=== PATIENT | male | born 1990 | race African-American/Black ===

== ENCOUNTER 2023-09-03 20:22 | Inpatient (IN) | payer MEDICAID, OTHER ==
--- NOTE | 2023-09-03 21:28 | ED ---
Psych HPI - General Chief Complaint: Psychiatric Symptoms Stated Complaint: Petition Time Seen by Provider: 09/03/23 20:47 Source: patient, police, RN notes reviewed Mode of arrival: ambulatory - History of Present Illness Initial Comments: 33-year-old male who states he does not feel well about himself feels depressed he does admit to drinking alcohol today. He did cut his right forearm with a knife earlier today he states his tetanus shots are up-to-date. He was brought in by police under petition for suicidal ideation the apparently stated that he wanted to pretend like he had a gun so he would be shot by the police. MD Complaint: suicidal ideation, feels depressed - Related Data Allergies Allergy/AdvReac Type Severity Reaction Status Date / Time No Known Allergies Allergy Verified 09/03/23 20:35 Review of Systems ROS Statement: Those systems with pertinent positive or pertinent negative responses have been documented in the HPI. ROS Other: All systems not noted in ROS Statement are negative. Past Medical History Past Medical History: No Reported History Past Surgical History: No Surgical Hx Reported Smoking Status: Current every day smoker, Heavy tobacco smoker Past Alcohol Use History: Occasional Past Drug Use History: None Reported General Exam - General Exam Comments Initial Comments: This is a well-developed well-nourished awake alert oriented x 4 male. He does have the smell of alcohol conjoiners on his breath Limitations: no limitations General appearance: alert, in no apparent distress Head exam: Present: atraumatic, normocephalic, normal inspection Eye exam: Present: normal appearance, PERRL, EOMI. Absent: scleral icterus, conjunctival injection, periorbital swelling ENT exam: Present: normal exam, mucous membranes moist Neck exam: Present: normal inspection. Absent: tenderness, meningismus, lymphadenopathy Respiratory exam: Present: normal lung sounds bilaterally. Absent: respiratory distress, wheezes, rales, rhonchi, stridor Cardiovascular Exam: Present: regular rate, normal rhythm, normal heart sounds. Absent: systolic murmur, diastolic murmur, rubs, gallop, clicks GI/Abdominal exam: Present: soft, normal bowel sounds. Absent: distended, tenderness, guarding, rebound, rigid Extremities exam: Present: full ROM, normal capillary refill, other (Facial abrasion seen to the volar aspect of the right forearm no active bleeding no foreign body seen no repair indicated. No neurovascular deficits distally.). Absent: tenderness, pedal edema, joint swelling, calf tenderness Back exam: Present: normal inspection Neurological exam: Present: alert, oriented X3, CN II-XII intact Psychiatric exam: Present: depressed, flat affect, suicidal ideation Skin exam: Present: warm, dry, intact, normal color. Absent: rash Course Vital Signs 09/03/23 20:24 Temperature 98.6 F Pulse Rate 101 H Respiratory 22 Rate Blood Pressure 153/85 O2 Sat by Pulse 99 Oximetry Medical Decision Making - Medical Decision Making Patient was evaluated by the surgical service and will be admitted for inpatient evaluation and treatment of depression and suicidal ideation. He is a voluntary signed in. Was pt. sent in by a medical professional or institution (, NEHEMIAH, LASERIST, urgent care, hospital, or long-term...) When possible be specific @ -No Did you speak to anyone other than the patient for history (EMS, parent, family, police, friend...)? What history was obtained from this source @ -No Did you review nursing and triage notes (agree or disagree)? Why? @ -I reviewed and agree with nursing and triage notes Were old charts reviewed (outside hosp., previous admission, EMS record, old EKG, old radiological studies, urgent care reports/EKG's, long-term records)? Report findings @ -No old charts were reviewed Differential Diagnosis (chest pain, altered mental status, abdominal pain women, abdominal pain men, vaginal bleeding, weakness, fever, dyspnea, syncope, headache, dizziness, GI bleed, back pain, seizure, CVA, palpatations, mental health, musculoskeletal)? @ -Acute depression, suicidal ideation, alcohol ingestion EKG interpreted by me (3pts min.). @ -Not indicated X-rays interpreted by me (1pt min.). @ -None done CT interpreted by me (1pt min.). @ -None done U/S interpreted by me (1pt. min.). @ -None done What testing was considered but not performed or refused? (CT, X-rays, U/S, la bs)? Why? @ -None What meds were considered but not given or refused? Why? @ -None Did you discuss the management of the patient with other professionals (professionals i.e. , NEHEMIAH, LASERIST, lab, RT, psych nurse, psychotherapist social worker, lathing supervisor, teacher, surface to air weapons officer, wrapper caser)? Give summary @ -EPS service Was smoking cessation discussed for >3mins.? @ -No Was critical care preformed (if so, how long)? @ -No Were there social determinants of health that impacted care today? How? (Homelessness, low income, unemployed, alcoholism, drug addiction, transportation, low edu. Level, literacy, decrease access to med. care, chcf, rehab)? @ -No Was there de-escalation of care discussed even if they declined (Discuss DNR or withdrawal of care, Hospice)? DNR status @ -No What co-morbidities impacted this encounter? (DM, HTN, Smoking, COPD, CAD, Cancer, CVA, ARF, Chemo, Hep., AIDS, mental health diagnosis, sleep apnea, morbid obesity)? @ -None Was patient admitted / discharged? Hospital course, mention meds given and route, prescriptions, significant lab abnormalities, going to OR and other pertinent info. @ -Hospital course patient was admitted to the EPS service for inpatient evaluation and treatment for major depression, suicidal ideation Undiagnosed new problem with uncertain prognosis? @ -No Drug Therapy requiring intensive monitoring for toxicity (Heparin, Nitro, Insulin, Cardizem)? @ -No Were any procedures done? @ -No Diagnosis/symptom? @ -Major depression, suicidal ideation, alcohol ingestion Acute, or Chronic, or Acute on Chronic? @ -Acute Uncomplicated (without systemic symptoms) or Complicated (systemic symptoms)? @ -Default Side effects of treatment? @ -No Exacerbation, Progression, or Severe Exacerbation? @ -No Poses a threat to life or bodily function? How? (Chest pain, [place], [place], pneumonia, PE, COPD, DKA, ARF, appy, cholecystitis, CVA, Diverticulitis, Homicidal, Suicidal, threat to staff... and all critical care pts) @ -Potential Disposition Clinical Impression: Depression, Suicidal ideation, Alcohol ingestion Disposition: TRANSFER TO PSYCH HOSP/UNIT Condition: Stable Referrals: None,Stated [Primary Care Provider] - 1-2 days Decision Date: 09/03/23 Decision Time: 22:39
[2023-09-04] MEDS ORDERED: IBUPROFEN 600 MG TAB PO PRN (00:55)
[2023-09-04] MEDS ORDERED: MAGNESIUM HYDROXIDE 2,400 MG/30 ML CUP PO PRN (00:55)
[2023-09-04] MEDS ORDERED: haloperidoL 5 MG TAB PO PRN (00:55)
[2023-09-04] MEDS ORDERED: ACETAMINOPHEN TAB 325 MG TAB PO PRN (00:55)
[2023-09-04] MEDS ORDERED: LORazepam 1 MG TAB PO PRN (00:55)
[2023-09-04] MEDS ORDERED: HALOPERIDOL LACTATE 5 MG/ML 1 ML VIAL IM PRN (01:03)
[2023-09-04] MEDS ORDERED: LORazepam 2 MG/ML INJ IM PRN (01:03)
[2023-09-04 08:52] LABS: Basophils % (A) 0 %; Eosinophils # (A) 0.1 k/uL (0-0.7); Eosinophils % (A) 2 %; HCT 44.2 % (39.0-53.0); HGB 14.2 gm/dL (13.0-17.5); Lymphocytes # (A) 2.4 k/uL (1.0-4.8); Lymphocytes % (A) 38 %; MCH 31.9 pg (25.0-35.0); MCHC 32.3 g/dL (31.0-37.0); MCV 98.9 fL (80.0-100.0); Mean Platelet Volume 7.5; Monocytes # (A) 0.4 k/uL (0-1.0); Monocytes % (A) 6 %; Neutrophils # (A) 3.4 k/uL (1.3-7.7); Neutrophils % (A) 53 %; Platelet Count 283 k/uL (150-450); RBC 4.47 m/uL (4.30-5.90); RDW 13.9 % (11.5-15.5); WBC 6.4 k/uL (3.8-10.6)
[2023-09-04 09:08] LABS: ALT 29 U/L (4-49); AST 35 U/L (17-59); African American GFR (CKD) >90 (>60 ml/min/1.73 sqM); Albumin 3.7 g/dL (3.5-5.0); Alkaline Phosphatase 67 U/L (38-126); Anion Gap 5 mmol/L; Blood Urea Nitrogen 10 mg/dL (9-20); Calcium 8.9 mg/dL (8.4-10.2); Carbon Dioxide 27 mmol/L (22-30); Chloride 108 mmol/L (98-107); Glucose 93 mg/dL (74-99); Non-African American GFR(CKD) >90 (>60 ml/min/1.73 sqM); Sodium 140 mmol/L (137-145); Total Bilirubin 0.5 mg/dL (0.2-1.3); Total Protein 6.6 g/dL (6.3-8.2)
[2023-09-04] MEDS: NICOTINE 14MG/24HR PATCH TRANSDERM SCH (09:21)
[2023-09-04] MEDS ORDERED: hydrOXYzine pamoate 25 MG CAP PO PRN (13:50)
--- NOTE | 2023-09-04 13:58 | P.HP ---
Psychiatric H&P - . H&P Date: 09/04/23 History & Physical: Allergies Allergy/AdvReac Type Severity Reaction Status Date / Time No Known Allergies Allergy Verified 09/03/23 23:13 Vital Signs Temp 97.0 F L 09/04/23 01:24 Pulse 76 09/04/23 01:24 Resp 18 09/04/23 01:24 BP 137/72 09/04/23 01:24 Pulse Ox 99 09/04/23 01:24 FiO2 Intake & Output 09/03/23 09/04/23 09/04/23 18:59 06:59 18:59 Weight 107.7 kg Laboratory Last Values SARS-CoV-2 (PCR) Not Detected (Not Detectd) 09/03/23 23:36 09/04/23 08:49 IDENTIFYING DATA: Patient is a 33 year old male, who lives with his significant other in a town house. He has 8 children, with one on the way. Works visual display associate at [employer] HPI: Patient presented to the hospital on 09/02. He is brought in petition by the police. As per EPS note, "Petition states, "He has cut his wrist with a knife. He told officers that he was going to say he had a gun and do suicide by nuclear spectroscopist. His girlfriend watched him cut his forearm with a knife. He told her he was going to kill himself and put that on her and the kids". Upon assessment pt had a blanket covering his head. Pt was cooperative with RN and admits to making those statements. He denies being actively suicidal but did have a plan to cut self or dealth by nuclear spectroscopist. Pt seems to minimize the situation and statements made and he wants to return home. He states that him and his girlfriend got into an argument because he thought that she was cheating on him. She told him that she didn't want to be with him anymore and he starting to cut himself in front of her. "I wanted to get her attention, to make her care". Upon todays assessment, he admitted to cutting his arm with a knife, because he was arguing with his girl, and he wanted to get attention from her. Patient states that the girlfriend called the police afterwards and the police brought him to the hospital. Patient denies any current stressors. States he was only depressed yesterday. Was minimizing his depression and anxiety. Denies any problems today. Patient is minimizing his situation, speaking quietly, and seemingly sad during the interview. Patient denies any suicidal or homicidal ideations intent or plan. At this time patient denies any auditory or visual hallucinations. Patient denies any flight of ideas racing thoughts and increased in goal directed behavior. Patient denies drugs, admits to occasion ally drinking alcohol. Current every day smoker. PAST PSYCHIATRIC HISTORY: denies PMH:As per ER note ALLERGIES: as per EMR CHEMICAL DEPENDENCY HISTORY: as per HPI FAMILY PSYCHIATRIC/SUBSTANCE USE HISTORY: denies SOCIAL HISTORY: Patient was born and raised in [place], [place], moved to [place] when he was 9. Has gone between [place] and [place] growing up. Currently lives in [place], with his significant other. Patient has 8 children, and expecting another. High school graduate, some college. Reports incarceration in May for child support. MENTAL STATUS EXAM: General Appearance: Patient appears to be stated age is alert, directable, and attempts to cooperate. Patient appears to have adequate hygiene and grooming. Dressed in street clothes, has short hair and a romeo. Behavior: Patient is seated without any agitated behavior. Minimizing Speech: Patient's speech is fluent and nonpressured. Monotone, mumbling at times Mood/Affect: Patient reports their mood is all right, affect is congruent and constricted. Suicidality/Homicidality: Patient denies having any homicidal ideation intent or plan. Denies any suicidal ideations intent or plan Perceptions: Patient denies any visual hallucinations and denies any auditory hallucinations Though content/process: There is no evidence of any delusional thought content and thought process is linear and goal-directed. [place] Memory and concentration: AOX3, grossly intact for the purposes of this session. Can spell "WORLD" backward Judgment and insight: poor STRENGTHS/WEAKNESSES: strength is that patient is resilient. Weakness is that patient has poor judgment and is impulsive INTELLECT: average IMPRESSIONS: major depressive disorder without psychotic features adjustment disorder, with emotional conduct nicotine dependance alcohol use disorder PLAN: -Patient is admitted under voluntary status to MHU for stabilization of psychiatric symptoms and safety. Patient has signed adult voluntary form and medication consent and is placed in patient's chart. -Medications : Will start patient on Zoloft 50mg daily for mood/anxiety, Vistaril as needed for anxiety. Consider adding Remeron versus trazodone if patient requires this for sleep over the weekend. -Ativan and Haldol PRN for agitation/aggression -Patient was informed of the risks, benefits and side effects of the medication and patient verbally consented to taking the medications. -Internal Medicine consult to perform medical evaluation and physical. -NRT - nicotine patch -SW on board for discharge planning. Encourage patient to participate in groups to work on coping skills. Likely discharge early next week if patient is improving. 09/04/23 13:56
[2023-09-04] MEDS: SERTRALINE 50 MG TAB PO SCH (14:41)
[2023-09-04 15:41] LABS: Chol/HDL Ratio 2.99 Ratio; LDL Cholesterol,Calculated 118.9 mg/dL (0.0-131.0); VLDL Calculation 11.62 mg/dL (5.00-40.00)
--- NOTE | 2023-09-05 00:31 | P.CONS ---
History of Present Illness - Reason for Consult Consult date: 09/05/23 - History of Present Illness The patient is a 33-year-old male with no known PMH who presented to the emergency room after self-harm and suicidal ideation. The patient was admitted to the mental health unit where he was seen and evaluated. The patient reports that he had gotten into an argument with his girlfriend and in an attempt to get attention, he cut himself superficially on his right forearm. He reports drinki ng 2 pints of hard liquor per week and smoking a pack of cigarettes every week. Denies any illicit substance use. Also denied any physical complaints. Denied experiencing chest discomfort, shortness of breath, fever, chills, cough, nausea, vomiting, abdominal pain, diarrhea. Review of systems: Pertinent positives and negatives as discussed in HPI, a complete review of systems was performed and all other systems are negative. Physical examination: General: non toxic, no distress, appears at stated age, normal weight Derm: Superficial right forearm lacerations well-healing, no unusual rashe s/lesions, no unusual ecchymoses, warm, dry Head: atraumatic, normocephalic, symmetric Eyes: EOMI, no lid lag, anicteric sclera ENT: Nose and ears atraumatic, no thrush, no pharyngeal erythema Neck: trachea midline, supple Mouth: no lip lesion, mucus membranes moist Cardiovascular: S1S2 reg, no murmur, no edema Lungs: CTA bilateral, no rhonchi, no rales , no accessory muscle use Abdominal: soft, nontender to palpation, no guarding Ext: no gross muscle atrophy, no contractures, Neuro: No gross focal neuro deficits noted Psych: Alert, oriented, appropriate affect Assessment: Alcohol and tobacco abuse Depression and self-harm Imaging: None performed Data Review: Laboratory evaluation was reviewed with sodium 140, hemoglobin 14.2, WBC count 6.4, and HDL 65 Plan: Advised on the importance of cessation Defer management of depression and self-harm to primary psychiatry service Thank you for allowing us to participate in the care of this patient. We will follow peripherally. Do not hesitate to contact us with questions. Someone can be reached from the [facility] hospitalist group at all hours of the day at [phone]. Past Medical History Past Medical History: No Reported History Additional Past Medical History / Comment(s): States has hx of anemia unknown cause/diagnosis History of Any Multi-Drug Resistant Organisms: None Reported Past Surgical History: No Surgical Hx Reported Smoking Status: Current every day smoker, Heavy tobacco smoker Past Alcohol Use History: Occasional Additional Past Alcohol Use History / Comment(s): states he drinks a couple shots occassionally could but not daily or weekly. States doesn not drink to excess. Past Drug Use History: None Reported Medications and Allergies Home Medications Medication Instructions Recorded Confirmed Type No Known Home Medications 09/03/23 09/03/23 History Allergies Allergy/AdvReac Type Severity Reaction Status Date / Time No Known Allergies Allergy Verified 09/03/23 23:13 Physical Exam Vitals: Vital Signs Temp Pulse Resp BP Pulse Ox 09/04/23 01:24 97.0 F L 76 18 137/72 99 Results CBC & Chem 7: 09/04/23 07:47 09/04/23 07:47 Labs: Abnormal Lab Results - Last 24 Hours (Table) 09/04/23 Range/Units 07:47 Chloride 108 H (98-107) mmol/L HDL Cholesterol 65.50 H (40.00-60.00) mg/dL
--- NOTE | 2023-09-05 19:13 | P.PN ---
Progress Note - Text Progress Note Date: 09/05/23 Interval history: Patient was seen watching TV with peers in the [facility] and was directable and agreeable to speak with development writer. He is somewhat guarded but reports his mood is alright. He reports good sleep, denies need for Trazodone. At this time patient denies any suicidal or homicidal ideation, intent or plan. Denies any uditory or visual hallucinations. Patient denies any side effects from the medications and has been compliant with meds. Mental status exam: General Appearance: Patient appears to be stated age, fair hygiene/grooming. Behavior: No agitated behavior. Patient is calm and directable. Speech: Patient's speech is fluent and non-pressured. Low tone. Mood/Affect: Mood is improving mildly, affect is congruent and constricted. Suicidality/Homicidality: Patient denies having any suicidal or homicidal ideation intent or plan. Perceptions: Patient denies any auditory or visual hallucinations. Though content/process: There is no evidence of any delusional thought content and thought process is linear and goal-directed. Memory and concentration: AOX3, grossly intact for the purposes of this session Judgment and insight: improving mildly Assessment/Plan: Continue with current diagnosis. Patient continues to meet criteria for inpatient psychiatric admission for symptom stabilization and safety. Patient will be maintained on current psychotropic medication regimen. Monitor for medication compliance and for any psychotropic medication side effects. Will continue to monitor ongoing response to treatment. Encouraged participation in milieu.
[2023-09-06 08:57] VITALS: TEMP 97.1
--- NOTE | 2023-09-06 17:14 | P.PN ---
Progress Note - Text Progress Note Date: 09/06/23 Interval history: Patient was seen watching TV with peers in the [facility] and was directable and agreeable to speak with mortgage loan underwriter. He is calm, reports his mood is alright, denies any concerns today. He reports good sleep and appetite. At this time, patient denies any suicidal or homicidal ideation, intent or plan. Denies any auditory or visual hallucinations. Patient denies any side effects from the medications and has been compliant with meds. He reports he is trying to keep a "positive mind". Mental status exam: General Appearance: Patient appears to be stated age, fair hygiene/grooming. Behavior: No agitated behavior. Patient is calm and directable. Speech: Patient's speech is fluent and non-pressured. Low tone. Mood/Affect: Mood is improving mildly, affect is congruent and constricted. Suicidality/Homicidality: Patient denies having any suicidal or homicidal ideation intent or plan. Perceptions: Patient denies any auditory or visual hallucinations. Though content/process: There is no evidence of any delusional thought content and thought process is linear and goal-directed. Memory and concentration: AOX3, grossly intact for the purposes of this session Judgment and insight: improving mildly Assessment/Plan: Continue with current diagnosis. Patient continues to meet criteria for inpatient psychiatric admission for symptom stabilization and safety. Patient will be maintained on current psychotropic medication regimen. Monitor for medication compliance and for any psychotropic medication side effects. Will continue to monitor ongoing response to treatment. Encouraged participation in milieu.
[2023-09-07 08:16] VITALS: PULSE 70
[2023-09-07 09:11] LABS: Appearance,Urine Clear (Clear); Bilirubin,Urine Negative (Negative); Blood,Urine Negative (Negative); Color,Urine Yellow; Glucose,Urine (UA) Negative (Negative); Ketones,Urine Negative (Negative); Leukocyte Esterase,Urine Negative (Negative); Nitrite,Urine Negative (Negative); Protein,Urine Negative (Negative); Specific Gravity,Urine 1.031 (1.001-1.035); Urobilinogen,Urine <2.0 mg/dL (<2.0)
--- NOTE | 2023-09-07 09:56 | P.PN ---
Progress Note - Text Progress Note Date: 09/07/23 Interval history: Patient was seen in the hallway, and was directable and agreeable to speak with fiction and nonfiction writer prose. He states that the medications are "clearing him up" and that he is feeling better. He reports good sleep and appetite. Patient continues to be fairly concrete. Mildly improving affect. At this time, patient denies any suicidal or homicidal ideation, intent or plan. Denies any auditory or visual hallucinations. Patient denies any side effects from the medications and has been compliant with meds. MENTAL STATUS EXAM: General Appearance: Patient appears to be stated age is alert, directable, and attempts to cooperate. Patient appears to have adequate hygiene and grooming. Dressed in street clothes, has short hair and a romeo. Behavior: Patient is seated without any agitated behavior. Speech: Patient's speech is fluent and nonpressured. Low tone, mildly improving Mood/Affect: Patient reports their mood is better, affect is congruent and constricted. Suicidality/Homicidality: Patient denies having any homicidal ideation intent or plan. Denies any suicidal ideations intent or plan Perceptions: Patient denies any visual hallucinations and denies any auditory hallucinations Though content/process: There is no evidence of any delusional thought content and thought process is linear and goal-directed. Memory and concentration: AOX3, grossly intact for the purposes of this session. Judgment and insight: mildly improving IMPRESSIONS: major depressive disorder without psychotic features adjustment disorder, with emotional conduct nicotine dependance alcohol use disorder PLAN: -Patient is admitted under voluntary status to MHU for stabilization of psychiatric symptoms and safety. Patient has signed adult voluntary form and medication consent and is placed in patient's chart. -Medications : Zoloft 50mg daily for mood/anxiety, Vistaril as needed for anxiet y. -Ativan and Haldol PRN for agitation/aggression -SW on board for discharge planning. Encourage patient to participate in groups to work on coping skills. Likely discharge home tomorrow if patient continues improving.
[2023-09-07 19:01] LABS: Urine Alcohol Negative (Negative); Urine Barbiturate Negative (Negative); Urine Cocaine Negative (Negative); Urine Methadone Negative (Negative); Urine Opiates Negative (Negative); Urine Phencyclidine Negative (Negative)
[2023-09-08 07:16] VITALS: BP 142/86; RESP 16
--- NOTE | 2023-09-08 10:32 | P.DS ---
Providers Date of admission: 09/04/23 00:52 Expected date of discharge: 09/08/23 Attending physician: Tyler Garza MD Consults: 09/04/23 00:55 Consult Physician Routine Consulting Provider: Kt Bhandari Consult Reason/Comments: H&P for mental health admission Do you want consulting provider notified?: Yes Primary care physician: Stated None - Discharge Diagnosis(es) (1) Major depressive disorder without psychotic features Current Visit: Yes Status: Acute Priority: High (2) Adjustment disorder with mixed disturbance of emotions and conduct Current Visit: Yes Status: Acute Priority: High (3) Nicotine dependence Current Visit: Yes Status: Acute Priority: Low (4) Alcohol use disorder Current Visit: Yes Status: Acute Priority: Medium Hospital Course: Admission HPI: Admission note was completed by resume writer "[Patient presented to the hospital on 09/02. He is brought in petition by the police. As per EPS note, "Petition states, "He has cut his wrist with a knife. He told officers that he was going to say he had a gun and do suicide by network operations specialist. His girlfriend watched him cut his forearm with a knife. He told her he was going to kill himself and put that on her and the kids". Upon assessment pt had a blanket covering his head. Pt was cooperative with RN and admits to making those statements. He denies being actively suicidal but did have a plan to cut self or dealth by network operations specialist. Pt seems to minimize the situation and statements made and he wants to return home. He states that him and his girlfriend got into an argument because he thought that she was cheating on him. She told him that she didn't want to be with him anymore and he starting to cut himself in front of her. "I wanted to get her attention, to make her care". Upon todays assessment, he admitted to cutting his arm with a knife, because he was arguing with his girl, and he wanted to get attention from her. Patient states that the girlfriend called the police afterwards and the police brought h im to the hospital. Patient denies any current stressors. States he was only depressed yesterday. Was minimizing his depression and anxiety. Denies any problems today. Patient is minimizing his situation, speaking quietly, and seemingly sad during the interview. Patient denies any suicidal or homicidal ideations intent or plan. At this time patient denies any auditory or visual hallucinations. Patient denies any flight of ideas racing thoughts and increased in goal directed behavior. Patient denies drugs, admits to occasionally drinking alcohol. Current every day smoker." Hospital course: Upon admission to the unit patient was directable and agreeable to commence treatment and signed adult voluntary form. Patient got along well with other patients on the unit and followed unit protocol. Patient was compliant with the medications and denied any side effects throughout hospital course. Patient was started on Zoloft and increased to a dose of 50 mg daily for mood/anxiety, Vistaril as needed for anxiety which she did not take. Patient spoke of his stressors and engaged in therapy both group and individual. Patient was also seen by medical team for history and physical exam. Throughout the course of the hospitalization patient gradually improved with regards to mood, anxiety, sleep and became more future oriented with improved insight and judgment. On the day of discharge patient denied any suicidal or homicidal ideations intent or plan denied any auditory or visual hallucinations. Patient endorsed wanting to live for his health and his kids. The patient denied any access to guns or weapons. Patient denied any paranoia and did not endorse any delusions. Patient does have a significant history of substance abuse and was counseled on abstaining from all substances including alcohol and marijuana. Patient was offered however declined inpatient substance-abuse rehab. Patient elected to do outpatient substance use treatment program through [facility]. Patient was also offered anticraving medications for alcohol however he declined at this time. Patient was also counseled on the medications and need for regular compliance and was encouraged to follow-up with their outpatient appointment for mental health and also for primary care. Prior to discharge a family meeting will be arranged by psychotherapist social worker to answer any questions and ensure safety upon discharge. Will be discharged back home, will be staying with his girlfriend. He will be following up at [facility]. Mental status exam: General Appearance: Patient appears to be tall, several tattoos, stated age is alert, pleasant, and cooperative. Patient is in no acute distress and has improved hygiene and grooming Behavior: Patient is calmly seated without any agitated behavior. Speech: Patient's speech is fluent and nonpressured. Mood/Affect: Patient reports their mood is "better", affect is congruent and euthymic. Suicidality/Homicidality: Patient denies having any suicidal or homicidal ideation intent or plan. Perceptions: Patient denies any auditory or visual hallucinations. Though content/process: There is no evidence of any delusional thought content and thought process is linear and goal-directed. More future oriented Memory and concentration: AOX3, grossly intact for the purposes of this session. Can spell "WORLD" backwards correctly. Judgment and insight: improved with guarded prognosis Impression: major depressive disorder without psychotic features adjustment disorder, with emotiona and conduct nicotine dependance alcohol use disorder Plan: -Continue with discharge today as patient has improved and stabilized psychiatrically and is not currently an imminent threat to himself and/or others. -Continue medications: Zoloft 50 mg daily for mood/anxiety. -Patient was counseled on the need for medication compliance and appropriate follow-up at mental health and also primary care for medical issues. Patient verbalized understanding and agreed. -Social work to arrange for and conduct family meeting to ensure safety upon discharge and answer any questions/concerns. Social work also to arrange for patients follow up appointments with [facility] for psychiatric care along with follow up with primary care provider. -Patient counseled on abstaining from recreational drugs and marijuana and alcohol. Was informed/educated on the adverse effects on their physical and mental health. Patient verbally agreed and understood. Patient was offered substance abuse treatment however declined at this time. -Patient was instructed to return to the hospital or seek immediate medical care if their psychiatric or medical symptoms do worsen or reoccur. Allergies Allergy/AdvReac Type Severity Reaction Status Date / Time No Known Allergies Allergy Verified 09/03/23 23:13 Laboratory Results WBC 6.4 k/uL (3.8-10.6) 09/04/23 07:47 RBC 4.47 m/uL (4.30-5.90) 09/04/23 07:47 Hgb 14.2 gm/dL (13.0-17.5) 09/04/23 07:47 Hct 44.2 % (39.0-53.0) 09/04/23 07:47 MCV 98.9 fL (80.0-100.0) 09/04/23 07:47 MCH 31.9 pg (25.0-35.0) 09/04/23 07:47 MCHC 32.3 g/dL (31.0-37.0) 09/04/23 07:47 RDW 13.9 % (11.5-15.5) 09/04/23 07:47 Plt Count 283 k/uL (150-450) 09/04/23 07:47 MPV 7.5 09/04/23 07:47 Neutrophils % 53 % 09/04/23 07:47 Lymphocytes % 38 % 09/04/23 07:47 Monocytes % 6 % 09/04/23 07:47 Eosinophils % 2 % 09/04/23 07:47 Basophils % 0 % 09/04/23 07:47 Neutrophils # 3.4 k/uL (1.3-7.7) 09/04/23 07:47 Lymphocytes # 2.4 k/uL (1.0-4.8) 09/04/23 07:47 Monocytes # 0.4 k/uL (0-1.0) 09/04/23 07:47 Eosinophils # 0.1 k/uL (0-0.7) 09/04/23 07:47 Basophils # 0.0 k/uL (0-0.2) 09/04/23 07:47 Sodium 140 mmol/L (137-145) 09/04/23 07:47 Potassium 4.0 mmol/L (3.5-5.1) 09/04/23 07:47 Chloride 108 mmol/L (98-107) H 09/04/23 07:47 Carbon Dioxide 27 mmol/L (22-30) 09/04/23 07:47 Anion Gap 5 mmol/L 09/04/23 07:47 BUN 10 mg/dL (9-20) 09/04/23 07:47 Creatinine 0.99 mg/dL (0.66-1.25) 09/04/23 07:47 Est GFR (CKD-EPI)AfAm >90 (>60 ml/min/1.73 sqM) 09/04/23 07:47 Est GFR (CKD-EPI)NonAf >90 (>60 ml/min/1.73 sqM) 09/04/23 07:47 Glucose 93 mg/dL (74-99) 09/04/23 07:[address] Glu mg/dL 111 mg/dL 09/04/23 07:47 Hemoglobin A1c 5.5 % (<=6.0) 09/04/23 07:47 Calcium 8.9 mg/dL (8.4-10.2) 09/04/23 07:47 Total Bilirubin 0.5 mg/dL (0.2-1.3) 09/04/23 07:47 AST 35 U/L (17-59) 09/04/23 07:47 ALT 29 U/L (4-49) 09/04/23 07:47 Alkaline Phosphatase 67 U/L (38-126) 09/04/23 07:47 Total Protein 6.6 g/dL (6.3-8.2) 09/04/23 07:47 Albumin 3.7 g/dL (3.5-5.0) 09/04/23 07:47 Triglycerides 58.10 mg/dL (0.00-149.00) 09/04/23 07:47 Cholesterol 196.00 mg/dL (0.00-200.00) 09/04/23 07:47 LDL Cholesterol, Calc 118.9 mg/dL (0.0-131.0) 09/04/23 07:47 VLDL Cholesterol, Calc 11.62 mg/dL (5.00-40.00) 09/04/23 07:47 HDL Cholesterol 65.50 mg/dL (40.00-60.00) H 09/04/23 07:47 Cholesterol/HDL Ratio 2.99 Ratio 09/04/23 07:47 TSH 2.160 mIU/L (0.465-4.680) 09/04/23 07:47 Urine Color Yellow 09/07/23 08:45 Urine Appearance Clear (Clear) 09/07/23 08:45 Urine pH 6.0 (5.0-8.0) 09/07/23 08:45 Ur Specific [place] 1.031 (1.001-1.035) 09/07/23 08:45 Urine Protein Negative (Negative) 09/07/23 08:45 Urine Glucose (UA) Negative (Negative) 09/07/23 08:45 Urine Ketones Negative (Negative) 09/07/23 08:45 Urine Blood Negative (Negative) 09/07/23 08:45 Urine Nitrite Negative (Negative) 09/07/23 08:45 Urine Bilirubin Negative (Negative) 09/07/23 08:45 Urine Urobilinogen <2.0 mg/dL (<2.0) 09/07/23 08:45 Ur Leukocyte Esterase Negative (Negative) 09/07/23 08:45 Urine Opiates Screen Negative (Negative) 09/07/23 08:45 Urine Methadone Screen Negative (Negative) 09/07/23 08:45 Ur Propoxyphene Screen Negative (Negative) 09/07/23 08:45 Urine Barbiturates Negative (Negative) 09/07/23 08:45 Ur Phencyclidine Scrn Negative (Negative) 09/07/23 08:45 Ur Amphetamine Screen Negative (Negative) 09/07/23 08:45 U Benzodiazepines Scrn Negative (Negative) 09/07/23 08:45 Urine Cocaine Screen Negative (Negative) 09/07/23 08:45 U Cannabinoids Screen Positive (Negative) A 09/07/23 08:45 Urine Alcohol Negative (Negative) 09/07/23 08:45 SARS-CoV-2 (PCR) Not Detected (Not Detectd) 09/03/23 23:36 Vital Signs Temp 97.1 F L 09/08/23 06:51 Pulse 70 09/08/23 06:51 Resp 16 09/08/23 06:51 BP 142/86 09/08/23 06:51 Pulse Ox 96 09/07/23 08:05 FiO2 Patient Condition at Discharge: Stable Plan - Discharge Summary Discharge Rx Participant: Yes New Discharge Prescriptions: New Sertraline [Zoloft] 50 mg PO DAILY 30 Days #30 tab Discharge Medication List Sertraline [Zoloft] 50 mg PO DAILY 30 Days #30 tab 09/08/23 [Rx] Follow up Appointment(s)/Referral(s): [facility] [NON-STAFF] - 1 Week Patient Instructions/Handouts: How to Stop Smoking (ED), Depression (DC), At- Risk Alcohol Use (DC), Suicide Prevention (DC) Activity/Diet/Wound Care/Special Instructions: Avoid the use of street drugs and alcohol. Take all medications as prescribed. When you are in need of refills on your medications, please contact your medical provider and/or outpatient psychiatrist/provider to have this done. Please go to your scheduled outpatient appointment for aftercare treatment. If symptoms return or become worse, call the crisis line at and/or go to the nearest emergency room for evaluation. National Suicide Hotline 988. Discharge/Stand Alone Forms: AA Meetings [address] [facility] [address] [facility] - [facility], AA Meetings [place] Discharge Disposition: HOME SELF-CARE
== END 2023-09-08 12:01 | disposition home or self-care (01) | DRG 754 ==
LOC: EC 20:22 → 3MHU 09-04 00:52
PROVIDERS: ADMIT Psychiatry & Neurology Psychiatry; ATTEND Psychiatry & Neurology Psychiatry
DX: F32.9 Major depressive disorder, single episode, unspecified (principal); F10.10 Alcohol abuse, uncomplicated; F43.25 Adjustment disorder with mixed disturbance of emotions and conduct; Z11.52 Encounter for screening for COVID-19; Z28.310 Unvaccinated for COVID-19; F41.9 Anxiety disorder, unspecified; F17.210 Nicotine dependence, cigarettes, uncomplicated; Z71.6 Tobacco abuse counseling; S51.811A Laceration without foreign body of right forearm, initial encounter; X78.1XXA Intentional self-harm by knife, initial encounter; Z59.6 Low income; Z71.41 Alcohol abuse counseling and surveillance of alcoholic; Z71.51 Drug abuse counseling and surveillance of drug abuser
CPT/HCPCS: 80053; 80061; 80306; 81003; 82075; 83036; 84443; 85025; 87635; 99285